=== PATIENT | male | born 1940 | race Caucasian/White ===

== ENCOUNTER → 2017-05-04 | Outpatient (CLI) | payer BC, OTHER ==
[~2017-05-04] MED LIST: ACET-1311 PO; ASPCH81X PO; ATOR-26 PO; CALC-323 PO; COEN1CAP28 PO; FERR28TA PO; MECL1TAB42 PO; METF500T PO; METO25TA3 PO; MULT-506 PO; NITR0.4S UT
[2017-05-04 14:25] LABS: ESTIMATED AVERAGE GLUCOSE 157 mg/dl; HA1C FLAG Normal (Normal)
[2017-05-04 14:35] LABS: BLOOD UREA NITROGEN 21 mg/dl (7-18); BUN/CREATININE RATIO 20.9 (10-20); CALCIUM 8.4 mg/dl (8.5-10.1); CARBON DIOXIDE 29 mmol/L (21-32); CHLORIDE 108 mmol/L (98-107); CHOLESTEROL 113 mg/dl (0-200); GLUCOSE 111 mg/dl (70-99); POTASSIUM 4.1 mmol/L (3.5-5.1); SODIUM 142 mmol/L (136-145); TRIGLYCERIDES 59 mg/dl (0-150); VERY LOW DENSITY LIPOPROT CALC 12 mg/dl
[2017-05-04 14:39] LABS: CHOLESTEROL/HDL RATIO 2.1; HDL CHOLESTEROL 55 mg/dl
[2017-05-04 23:39] LABS: LYME DISEASE AB IGG NEG (NEG); LYME DISEASE AB IGM NEG (NEG)
== END | disposition home or self-care (01) ==
LOC: C.LABSPEC 12:33
PROVIDERS: ATTEND Internal Medicine
DX: E11.9 Type 2 diabetes mellitus without complications (principal); I25.10 Atherosclerotic heart disease of native coronary artery without angina pectoris; E78.5 Hyperlipidemia, unspecified; T14.8 Other injury of unspecified body region; W57.XXXA Bitten or stung by nonvenomous insect and other nonvenomous arthropods, initial encounter

== ENCOUNTER → 2017-09-22 | Outpatient (CLI) | payer BC, OTHER ==
--- NOTE | 2017-09-22 14:20 | DIAGNOSTIC IMAGING REPORT ---
CHEST 2 VIEWS ROUTINE HISTORY: 77 years-old Male BRONCHITIS, R/O PNEUMONIA acute productive cough for 2 weeks COMPARISON: Chest radiograph 05/03/2016 TECHNIQUE: Frontal and lateral views of the chest FINDINGS: Cardiomediastinal and hilar silhouettes are within normal limits. Prior median sternotomy. Surgical clips project in the region of the aortic arch. No pneumothorax, pleural effusion, focal airspace consolidation or overt pulmonary edema. Subsegmental linear opacities of the lung bases suggest atelectasis or scarring. The bones are grossly intact. There are degenerative changes of the shoulders and spine. Bones are mildly demineralized. IMPRESSION: No acute cardiopulmonary process. The above report was generated using voice recognition software. It may contain grammatical, syntax or spelling errors. Electronically signed by: Kiran Gomez M.D. 09/22/2017 2:18 PM Dictated Date/Time: 09/22/2017 2:17 PM
== END | disposition home or self-care (01) ==
LOC: C.RAD 13:33
PROVIDERS: ATTEND Internal Medicine
DX: J40 Bronchitis, not specified as acute or chronic (principal)

== ENCOUNTER → 2017-11-04 | Outpatient (CLI) | payer BC, OTHER ==
[2017-11-04 12:59] LABS: BASO % 0.3 %; BASO ABS # 0.02 K/uL (0-0.2); COMPLETE YES; EOS % 1.2 %; HEMATOCRIT 39.8 % (42-52); IG% 0.4 %; LYMPH ABS # 1.19 K/uL (1.2-3.4); MEAN CELL VOLUME 91.7 fL (80-100); MEAN CORPUSCULAR HEMOGLOBIN 30.4 pg (25-34); MEAN CORPUSCULAR HGB CONC 33.2 g/dl (32-36); MEAN PLATELET VOLUME 11.9 fL (7.4-10.4); MONO % 6.3 %; NEUT % 75.8 %; PLATELET COUNT 172 K/uL (130-400); RED BLOOD COUNT 4.34 M/uL (4.7-6.1); WHITE BLOOD COUNT 7.44 K/uL (4.8-10.8)
[2017-11-04 13:27] LABS: ALT/SGPT 28 U/L (12-78); AST/SGOT 22 U/L (15-37); BLOOD UREA NITROGEN 13 mg/dl (7-18); BUN/CREATININE RATIO 13.5 (10-20); CALCIUM 8.5 mg/dl (8.5-10.1); CARBON DIOXIDE 27 mmol/L (21-32); CHLORIDE 108 mmol/L (98-107); CREATININE 0.95 mg/dl (0.60-1.40); GLUCOSE 119 mg/dl (70-99); SODIUM 139 mmol/L (136-145)
[2017-11-04 13:30] LABS: ALB/GLOB RATIO 1.1 (0.9-2); ALKALINE PHOSPHATASE 56 U/L (45-117); CHOLESTEROL 114 mg/dl (0-200); CHOLESTEROL/HDL RATIO 1.8; HDL CHOLESTEROL 63 mg/dl; TRIGLYCERIDES 89 mg/dl (0-150); VERY LOW DENSITY LIPOPROT CALC 18 mg/dl
[2017-11-04 13:35] LABS: ESTIMATED AVERAGE GLUCOSE 157 mg/dl; HA1C FLAG Normal (Normal)
[2017-11-04 13:46] LABS: RATIO 15.5 mcg/mg (0-30.0)
== END | disposition home or self-care (01) ==
LOC: C.LABSPEC 12:21
PROVIDERS: ATTEND Internal Medicine
DX: E11.9 Type 2 diabetes mellitus without complications (principal); I25.10 Atherosclerotic heart disease of native coronary artery without angina pectoris; E78.5 Hyperlipidemia, unspecified